=== PATIENT | male | born 1960 | race Caucasian/White ===

== ENCOUNTER 2023-12-19 19:46 | Emergency (ER) | payer OTHER ==
--- NOTE | 2023-12-19 19:58 | ED Physician Documentation ---
History of Present Illness - Stated complaint Stated Complaint: FIT - Chief complaint Chief Complaint: General - History obtained from History obtained from: Patient, Police - History of Present Illness Timing: Today Pain level max: 0 Pain level now: 0 - Additonal information Additional information: 63-year-old male presents to the emergency department with police. They state that he has been booked into alf, but the alf will not accept him until he has his blood sugar taken as he is a diabetic. Patient has no complaints. Police state there was no trauma. Patient does not complain of any injuries. He states that he has been taking his insulin at home as prescribed. No headache, no vomiting, no chest pain. Review of Systems Constitutional: denies: Fever GI: denies: Vomiting PD PAST MEDICAL HISTORY - Past Medical History Past Medical History: Yes Endocrine/Autoimmune: Type 2 diabetes - Past Surgical History Past Surgical History: Yes General: Other - Present Medications Home Medications: Ambulatory Orders Medication Instructions Recorded Confirmed Insulin Glargine [Lantus Solostar] 12/19/23 - Allergies Allergies/Adverse Reactions: Allergies Allergy/AdvReac Type Severity Reaction Status Date / Time naproxen Allergy Hives Verified 12/19/23 19:55 - Social History Does the pt smoke?: No Smoking Status: Never smoker Does the pt drink ETOH?: No Does the pt have substance abuse?: No - Immunizations Immunizations are current?: Yes - POLST Patient has POLST: No PD ED PE NORMAL - Vitals Vital signs reviewed: Yes - General General: Alert and oriented X 3, No acute distress - HEENT HEENT: Atraumatic, PERRL, Moist mucous membranes - Neck Neck: Supple, no meningeal sign - Cardiac Cardiac: RRR, Strong equal pulses - Respiratory Respiratory: No respiratory distress, Clear bilaterally - Abdomen Abdomen: Soft, Non tender, Non distended - Derm Derm: Warm and dry - Extremities Extremities: Normal ROM s pain - Neuro Neuro: Alert and oriented X 3 - Psych Psych: Normal mood, Normal affect Results - Vitals Vitals: Vital Signs - 24 hr 12/19/23 19:50 Temperature 36.6 C Heart Rate 102 H Respiratory 18 Rate Blood Pressure 168/97 H O2 Saturation 98 Oxygen O2 Source Room air PD Medical Decision Making - ED course Complexity details: considered differential, d/w patient ED course: 63-year-old male with a normal blood sugar 118. He declines any medical care here. He states he has no complaints. No injuries. Fit for confinement form filled out. No emergency medical condition at this time. This document was made in part using voice recognition software. While efforts are made to proofread this document, sound alike and grammatical errors may occur. Departure - Departure Disposition: Home, Self Care Clinical Impression: Encounter for medical screening examination, Diabetes Condition: Good Instructions: ED Diabetes General Info Follow-Up: YURI ARMSTRONG ARNP [Physician No Access] - Tomorrow Comments: His blood sugar is normal today. Continue his current diabetic medications as prescribed. Forms: PCP List Discharge Date/Time: 12/19/23 20:01
[2023-12-19 20:00] VITALS: BP 168/97; O2SAT 98
== END 2023-12-19 20:01 | disposition home or self-care (01) ==
LOC: ED 19:46
DX: Z02.89 Encounter for other administrative examinations (principal); E11.9 Type 2 diabetes mellitus without complications; Z79.4 Long term (current) use of insulin
CPT/HCPCS: 99282